=== PATIENT | male | born 1975 | race Asian ===

== ENCOUNTER 2019-02-07 10:29 | Emergency (ER) | payer SELFPAY ==
[~2019-02-07] VITALS: Ht 162.6 cm; Wt 72.6 kg
[2019-02-07 10:29] VITALS: BP_SYST 105
[2019-02-07 11:00] VITALS: BP_SYST 105
[2019-02-07] MEDS ORDERED: ACETAMINOPHEN 500 MG TABLET PO ONE (11:00)
== END 2019-02-07 10:59 ==
LOC: SED 10:29
DX: H92.01 Otalgia, right ear (principal)
CPT/HCPCS: 99283